=== PATIENT | male | born 1985 | race Caucasian/White ===

== ENCOUNTER 2021-05-16 07:07 | Emergency (ER) | payer OTHER ==
[2021-05-16 07:29] VITALS: BP 131/89
--- NOTE | 2021-05-16 08:08 | ED Physician Documentation ---
PD HPI URI - Stated complaint Stated Complaint: SORE THROAT,FLETCHER,COUGH - Chief complaint Chief Complaint: Heent - History obtained from History obtained from: Patient - History of Present Illness Timing - onset: How many days ago (2-3) Timing duration: Days (2-3) Timing details: Gradual onset, Still present Associated symptoms: Chills, Nasal congestion, Sore throat (very sore, painful to swallow.), Swollen nodes. No: Dry cough, Dyspnea, NVD Contributing factors: Sick contact (His mother has COVID, tested positive about 5-6 days ago. Patient started his symptoms 3 days ago.) Improves by: No: Medication (not improved with Ibuprofen.) Worsened by: Other (swallowing) Similar symptoms before: Has not had sx before Recently seen: Not recently seen Review of Systems Constitutional: reports: Chills, Myalgias Nose: reports: Congestion Throat: reports: Sore throat Cardiac: denies: Chest pain / pressure Respiratory: denies: Cough GI: reports: Nausea. denies: Abdominal Pain, Vomiting, Diarrhea Skin: denies: Rash, Lesions PD PAST MEDICAL HISTORY - Past Medical History Cardiovascular: None Respiratory: None Endocrine/Autoimmune: None - Present Medications Home Medications: Ambulatory Orders Medication Instructions Recorded Confirmed HYDROcod/ACETAM 5/325 [Cranberry 5/325] 1 ea PO Q6H PRN #15 tablet 05/16/21 dexAMETHasone [Decadron] 4 mg PO DAILY #5 tablet 05/16/21 - Allergies Allergies/Adverse Reactions: Allergies Allergy/AdvReac Type Severity Reaction Status Date / Time No Known Drug Allergies Allergy Verified 05/16/21 07:29 PD ED PE NORMAL - Vitals Vital signs reviewed: Yes - General General: Alert and oriented X 3, No acute distress (he seems uncomfortable swallowing and is preferring to spit out saliva. Winces if he swallows it instead. ), Well developed/nourished - HEENT HEENT: Ears normal, Pharynx benign (some redness and mild swelling of uvula. No peritonsillar edema nor tonsillar deviation. ) - Neck Neck: Supple, no meningeal sign, Other (mild right adenopathy anteriorly. ) - Cardiac Cardiac: RRR, No murmur - Respiratory Respiratory: Clear bilaterally - Derm Derm: Normal color, Warm and dry, No rash - Neuro Neuro: Alert and oriented X 3, No motor deficit, Normal speech (phonation is normal sounding. ) Results - Vitals Vitals: Oxygen O2 Source Room air PD MEDICAL DECISION MAKING - ED course Complexity details: considered differential (exposed to COVID 5-6 days ago, and now URI symptoms. Most likely will be that. Does not have strep appearance clinically. ), d/w patient Departure - Departure Disposition: 01 Home, Self Care Clinical Impression: Acute viral pharyngitis Upper respiratory infection Qualifiers: URI type: unspecified URI Qualified Code(s): J06.9 - Acute upper respiratory infection, unspecified Condition: Stable Record reviewed to determine appropriate education?: Yes Instructions: ED Pharyngitis Viral Follow-Up: [facility] [Provider Group] Prescriptions: dexAMETHasone [Decadron] 4 mg PO DAILY #5 tablet HYDROcod/ACETAM 5/325 [Cranberry 5/325] 1 ea PO Q6H PRN #15 tablet PRN Reason: Pain Comments: Small frequent fluids to maintain hydration. Tylenol every 4-6 hours for pain and fevers if needed. You can instead use hydrocodone with acetaminophen every 4-6 hours if needed for worse pain in the short-term. Decadron steroid daily for the next 5 days as well. Be sure to take it with food do not upset your stomach. You can still use Ibuprofen three times daily if needed for fevers/ pains, but take with food at it can upset your stomach along with the Decadron. Follow-up with the [place] [facility] regarding your tests from yesterday when they result. Given your symptoms and exposure to someone with Covid, that is going to be the most likely cause of your illness. I transmitted your prescriptions to [facility] pharmacy in [place]. My narcotic instructions I am prescribing a short course of narcotic pain medication for you. These are potentially dangerous and addictive medications that should be used carefully. These medications may constipate you. Take an [id number] stool softener such as docusate twice daily with plenty of water while taking these medications. If you go 24 hours without a bowel movement, take [id number] MiraLAX, per package instructions. Do not drink or drive while taking these medications. If you received narcotic or sedating medications while in the emergency department do not drive for 24 hours. Store this medication in a safe, secure place and out of reach of children. It is a violation of federal law to give or sell this medication to another person or to use in a manner other than prescribed. The ED will not refill narcotic prescriptions, including prescriptions lost or stolen. You can dispose of unwanted medications at the [facility]'s office or at several pharmacies such as [facility]. Discharge Date/Time: 05/16/21 08:33
[2021-05-16] MEDS ORDERED: DEXAMETHASONE 10 MG/ML VIAL PO STA (08:18)
[2021-05-16] MEDS ORDERED: CHERRY SYRUP 10 ML UDC PO ONE (08:18)
[2021-05-16] MEDS ORDERED: ACETAMINOPHEN 325 MG TABLET PO STA (08:18)
== END 2021-05-16 08:33 | disposition home or self-care (01) ==
LOC: ED 07:07
DX: J02.9 Acute pharyngitis, unspecified (principal); J06.9 Acute upper respiratory infection, unspecified
CPT/HCPCS: 99282; 99283; A9270

== ENCOUNTER 2022-08-01 16:04 | Emergency (ER) | payer OTHER ==
[2022-08-01 16:14] VITALS: BP 147/93
--- NOTE | 2022-08-01 17:31 | ED Physician Documentation ---
PD HPI LOWER EXT INJURY - Stated complaint Stated Complaint: R LEG PX - Chief complaint Chief Complaint: Trauma Ext - History obtained from History obtained from: Patient (Yesterday at 6 AM he was playing volleyball and felt a pull in his calf while running. Pain was significant yesterday but better today.) PD PAST MEDICAL HISTORY - Past Medical History Cardiovascular: None Respiratory: None Endocrine/Autoimmune: None - Present Medications Home Medications: Ambulatory Orders Medication Instructions Recorded Confirmed Acetaminophen [Tylenol] 650 mg PO Q6H PRN 08/01/22 08/01/22 Ibuprofen [Motrin] 1 tablet PO Q8H PRN 08/01/22 08/01/22 - Allergies Allergies/Adverse Reactions: Allergies Allergy/AdvReac Type Severity Reaction Status Date / Time No Known Drug Allergies Allergy Verified 08/01/22 16:15 PD ED PE NORMAL - Vitals Vital signs reviewed: Yes - General General: Alert and oriented X 3, No acute distress - Extremities Extremities: Other (The Achilles on the right is intact with normal Cortez's test. He is focally tender over the medial calf consistent with probably a partial calf rupture. That said he is able to walk and bear weight.) - Neuro Neuro: Alert and oriented X 3, Normal speech - Psych Psych: Normal mood, Normal affect Results - Vitals Vitals: Vital Signs - 24 hr 08/01/22 16:10 Temperature 35.8 C L Heart Rate 68 Respiratory 16 Rate Blood Pressure 147/93 H O2 Saturation 98 Oxygen O2 Source Room air PD Medical Decision Making - ED course ED course: 37-year-old gentleman with a partial calf rupture or strain. He is placed in a boot for comfort. [place]. Departure - Departure Disposition: Home, Self Care Clinical Impression: Strain of right calf muscle Condition: Good Record reviewed to determine appropriate education?: Yes Instructions: ED Strain Muscle Ext Comments: Continue ibuprofen for pain. You can walk and bear weight in the boot as tolerated. [place] Return for new or worsening symptoms.
== END 2022-08-01 17:45 | disposition home or self-care (01) ==
LOC: ED 16:04
DX: S86.911A Strain of unspecified muscle(s) and tendon(s) at lower leg level, right leg, initial encounter (principal); X58.XXXA Exposure to other specified factors, initial encounter; Y93.68 Activity, volleyball (beach) (court)
CPT/HCPCS: 99282; 99283